=== PATIENT | male | born 1980 | race Caucasian/White ===

== ENCOUNTER 2024-11-11 10:40 | Day surgery (SDC) | payer OTHER, SELFPAY ==
[2024-11-08 14:44] VITALS: BMI 24.4
[2024-11-11] VITALS (13 sets, daily range): BP systolic 126–151; BP diastolic 90–109; PULSE 78–90; RESP 13–24; TEMP 36.3–36.7; O2SAT 99–100; BMI 21.9
[2024-11-11] MEDS: SODIUM CHLORIDE 0.9% 500 ML 500 ML 20 ML IV (12:04)
[2024-11-11] MEDS: MIDAZOLAM INJ 1 MG/ML VIAL 2 ML (ASD USE ONLY) 2 MG IV (12:09)
[2024-11-11] MEDS: fentaNYL CIT INJ 50 mCg/ML AMP 2ML (ASD USE ONLY) IV (12:09)
[2024-11-11] MEDS: DiphenhydrAMINE INJ 50 MG/ML VIAL 25 MG IV (12:10)
[2024-11-11] MEDS: ONDANSETRON INJ 2 MG/ML INJ 2 ML 4 MG IV (12:10)
== END 2024-11-11 12:55 | disposition home or self-care (01) ==
PROVIDERS: PCP Family Medicine; Referring Provider Specialist; Visit Provider Specialist
PROC: 0DBE8ZX Excision of Large Intestine, Via Natural or Artificial Opening Endoscopic, Diagnostic (ICD-10-PCS; CPT 45380; principal; 2024-11-11 11:45)
PROC: (CPT 43239; 2024-11-11 11:45)
DX: K64.9 Unspecified hemorrhoids (principal); K57.30 Diverticulosis of large intestine without perforation or abscess without bleeding
CPT/HCPCS: 45378; J1200; J2250; J2405; J3010; J7040

== ENCOUNTER → 2024-11-20 | Outpatient (CLI) | payer OTHER, SELFPAY ==
--- NOTE | 2024-11-20 11:00 | XR_ITS ---
Examination: Abdomen sonogram, complete Date and time of exam: November 20, 2024 1054 hours INDICATIONS: Abdominal pain beginning 3 months ago. Technique: Multiple real-time grayscale transabdominal sonographic images of the abdomen have been obtained. Findings: 8 mm gallstone Normal gallbladder wall Normal common bile duct 0.2 cm Pancreatic head 2.0 cm Aorta not enlarged Liver 15.9 cm smooth contour Normal hepatopedal portal venous flow Patent IVC Right kidney 9.9 cm cortex 1.4 cm Left kidney 9.0 cm cortex 1.7 cm Mild renal parenchymal scar formation Spleen 9.1 cm IMPRESSION: Cholelithiasis, negative for cholecystitis
== END | disposition home or self-care (01) ==
LOC: CDIM 10:40
PROVIDERS: PCP Family Medicine; Referring Provider Specialist; Visit Provider Specialist
DX: K80.20 Calculus of gallbladder without cholecystitis without obstruction (principal)
CPT/HCPCS: 76700

== ENCOUNTER 2025-01-07 11:01 | Emergency (ER) | payer OTHER, SELFPAY ==
[2025-01-07] MEDS: NALOXONE INJ 1 MG/ML SYRINGE 2 ML 2 MG IV (11:03)
[2025-01-07 11:04] VITALS: PULSE 109; RESP 4
--- NOTE | 2025-01-07 11:06 | PD.EDOVER ---
ED Overdose RME/HPI General Chief Complaint: Overdose Stated Complaint: OVERDOSE Time Seen by Provider: 01/07/25 11:07 Arrival date/time: 01/07/25 11:01 RME / HPI RME / HPI Narrative: 44 year old male presents to the ED BIBA for overdose today. Per medics report, patient was found unresponsive on his bathroom floor with Fentanyl and Heroin in his possession. On their arrival, patient was a GCS of 3 with a respiratory rate of 4 and pin point pupils. Patient was given 2mg of IN Narcan by PD and an additional 2mg IN Narcan by EMS with improvement. 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 Prehospital BS 158, blood pressure 148/82, HR 109. Related Data Home Medications ?Medication ?Instructions ?Recorded ?Confirmed No Known Home Medications 11/08/24 11/08/24 Allergies Allergy/AdvReac Type Severity Reaction Status Date / Time amoxicillin (From Augmentin) Allergy Verified 11/11/24 11:02 clavulanic acid (From Allergy Verified 11/11/24 11:02 Augmentin) Review of Systems Review of Systems Systems Reviewed: All systems reviewed, normal except as documented ED Exam Narrative Physical exam: GENERAL: NAD, AAOx3, lethargic HEENT: Dry mucosa. Eyes open, symmetrical, & clear CARDIO: Heart RRR, no obvious murmurs PULM: No noted coughing/dyspnea CTA B/L, no R/W/R GI: Abdomen soft, nondistended, no pain on palpation. BSx4 SKIN/MSK/EXT: No wounds/rashes/edema/amputations, no pain on palpation. Pedal pulses present B/L NEURO: AAOx3, no focal neuro deficits, able to move all 4 extremities Course Course Course Narrative: See MDM Quality Measures none Orders Category Date Time Status Rock Breaker NOW Care 01/07/25 11:08 Completed Continuous Pulse Oximetry NOW Care 01/07/25 11:07 Completed EKG (ED ONLY) *Do not use* NOW Care 01/07/25 11:07 Completed In and Out Catheter X1 Care 01/07/25 12:04 Completed Insert IV NOW Care 01/07/25 11:08 Completed EKG (ED Only) Stat Exams 01/07/25 11:07 Ordered Alcohol, Urine Stat Lab 01/07/25 12:20 Completed CBC Stat Lab 01/07/25 11:08 Completed Comprehensive Metabolic Panel Stat Lab 01/07/25 11:08 Completed Drug Screen,Urine Stat Lab 01/07/25 12:20 Completed Free T4 (Free Thyroxine) Stat Lab 01/07/25 11:08 Completed Thyroid Stimulating Hormone Stat Lab 01/07/25 11:08 Completed Urinalysis Stat Lab 01/07/25 12:20 Completed NALOXONE INJ (Syringe) [Narcan Inj (Syringe)] Med 01/07/25 11:22 Discontinued 2 mg IV X1 ONE Sodium Chloride 0.9% 1000 ml [Ns] 1,000 ml Med 01/07/25 11:07 Discontinued IV 999 mls/hr Oxygen Delivery NOW RT 01/07/25 11:08 Completed Vital Signs Vital signs: Vital Signs Pulse Rate 108 H 01/07/25 11:09 Respiratory Rate 20 01/07/25 11:09 Blood Pressure 159/98 H 01/07/25 11:09 Pulse Oximetry (%) 99 01/07/25 11:09 Oxygen Delivery Method Nasal Cannula 01/07/25 11:09 Oxygen Flow Rate 2 01/07/25 11:09 Overdose MDM Narrative MDM Narrative:: 44 year old male presents to the ED BIBA for overdose today. Per medics report, patient was found unresponsive on his bathroom floor with Fentanyl and Heroin in his possession. On their arrival patient found to be a GCS of 3 with a respiratory rate of 4 and pin point pupils. Patient was given 2mg of IN Narcan by PD and an additional 2mg IN Narcan by EMS with improvement. 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 Prehospital BS 158, blood pressure 148/82, HR 109. Current GCS of 13. 1103: Additional 2 mg of IV Narcan given, labs ordered, 1L NS 1150: CBC shows normocytic anemia, CMP shows acute kidney injury likely secondary to dehydration in the setting of drug overdose, IV fluids ordered and given, elevated liver enzymes likely in the setting of drug use 1410: The patient has decided to elope after being explained the risks & benefits of leaving before medical clearance/discharge. The patient had the opportunity to ask questions about their condition which were answered to their satisfaction; the patient is aware that they may return for further care at any time as needed. Patient data External records reviewed:: EMS form Clinical information provided by:: EMS Social determinants that could affect healthcare access:: substance use Patient has the following chronic illnesses:: None How is presenting disease/condition affected by chronic disease/condition?: caused by Evaluation data The following diagnostics were reviewed and interpreted by me:: lab results Lab and/or radiology exams considered but not ordered:: CT head Interpretation Summary: CBC shows normocytic anemia, elevated liver enzymes, acute kidney injury, Medications / Prescriptions Medications or Prescriptions considered but not ordered:: . Medication administrations:: Medication Administration History Discontinued Medications Sodium Chloride (Ns) 1,000 mls @ 999 mls/hr IV .Q1H1M KELSI Stop: 01/07/25 12:07 Last Infusion: 01/07/25 12:19 Dose: Infused Documented By: Admin: 01/07/25 11:23 Dose: 999 mls/hr Documented By: VL Naloxone HCl (Naloxone Inj 1 Mg/Ml Syringe 2 Ml) 2 mg IV X1 ONE Stop: 01/07/25 11:23 Last Admin: 01/07/25 11:03 Dose: 2 mg Documented By: KIRSTIN See above Consultations Consultation(s) initiated? (list below): No Diagnosis Overdose Differential Diagnosis: drug overdose Most likely diagnosis given after review of the tests above:: Fentanyl/heroin overdose Admission Indicated Admission indicated?: not indicated Admission Request Was there a request for admission?: No Disposition Plan Disposition Plan: other (specify) (eloped) Discharge Plan Plan Patient Disposition: Elopement Prescriptions/Referrals Prescriptions/Med Rec: No Action No Known Home Medications Referrals: No Primary/Family,Physician [Primary Care Provider] - In 1 week Problem List Clinical Impression: Drug overdose Patient/Caregiver Discharge Instructions Print Language: Korean
[2025-01-07 11:07] VITALS: BMI 25.9
[2025-01-07 11:09] VITALS: BP 159/98; PULSE 108; RESP 20; O2SAT 99
[2025-01-07 11:19] VITALS: PULSE 106; O2SAT 99
[2025-01-07] MEDS: SODIUM CHLORIDE 0.9% 1000 ML 1,000 ML 999 ML IV (11:23)
[2025-01-07 11:31] LABS: Basophils # (Auto) 0.1 Thou/mm3 (0.0-0.2); Basophils % (Auto) 1 % (0-2.5); Eosinophils # (Auto) 0.1 Thou/mm3 (0.0-0.5); Eosinophils % (Auto) 1 % (0-10); Hematocrit 40.4 % (41.0-53.0); Hemoglobin 13.4 g/dL (13.5-16.0); Immature Granulocytes Auto 0.03 Thou/mm3 (0.00-0.00); Lymphocytes # (Auto) 3.6 Thou/mm3 (1.0-4.8); Lymphocytes % (Auto) 41 % (10-50); Mean Corpuscular HGB Conc 33.2 g/dl (31.0-37.0); Mean Corpuscular Hemoglobin 29.5 pg (25.0-35.0); Mean Corpuscular Volume 89 fL (80-100); Monocytes # (Auto) 0.8 Thou/mm3 (0.0-0.8); Monocytes % (Auto) 10 % (0-12); Neutrophils # (Auto) 4.2 Thou/mm3 (1.8-7.7); Neutrophils % (Auto) 48 % (37-80); Nucleated Red Blood Cell # 0.00 Thou/mm3 (0.00-0.00); Nucleated Red Blood Cell % 0 /100 WBC (0); Platelet Count 179 Thou/mm3 (140-440); RDW Standard Deviation 43.8 fL (35.1-43.9); Red Blood Count 4.54 Miln/mm3 (4.50-5.90); White Blood Count 8.8 Thou/mm3 (3.8-10.6)
[2025-01-07 11:47] LABS: Alanine Aminotransferase 93 U/L (10-49); Albumin, Serum 4.2 gm/dL (3.5-5.0); Albumin/Globulin Ratio 1.6 (1.2-2.2); Alkaline Phosphatase 77 U/L (46-116); Anion Gap 15 (7-16); Aspartate Amino Transferase 129 U/L (0-34); BUN/Creatinine Ratio 16 Ratio (12-20); Bilirubin,Total 0.4 mg/dL (0.3-1.2); Blood Urea Nitrogen 27 mg/dL (9-23); Calcium 8.6 mg/dL (8.3-10.6); Calcium (Corrected) 8.6 mg/dL (8.5-10.1); Carbon Dioxide 24.0 mMol/L (20.0-31.0); Chloride 101 mMol/L (98-107); Creatinine (Component) 1.7 mg/dL (0.6-1.3); Estimated Creatinine Clearance 56.1 mL/min (>60); Globulin 2.6 gm/dL (2.3-3.5); Glucose 214 mg/dL (74-106); Osmolality,Calculated 290 (275-295); Potassium 3.9 mMol/L (3.4-5.1); Sodium 140 mMol/L (136-145); Thyroid Stimulating Hormone 5.93 uIU/mL (0.55-4.78); Total Protein 6.8 gm/dL (5.7-8.2); eGFR 50 See Note
[2025-01-07 12:11] LABS: Free T4 (Free Thyroxine) 1.17 ng/dL (0.89-1.76)
[2025-01-07 12:39] LABS: Collection Type, Urine Clean Catch
[2025-01-07 13:00] LABS: Alcohol, Urine Negative (Negative); Amphetamine/Methamp Scrn,U Positive (Negative); Barbiturate Screen,Urine Negative (Negative); Benzodiazepines Screen,Urine Negative (Negative); Benzoylecgonine Screen, Ur Negative (Negative); Fentanyl Screen,Urine Positive (Negative); Opiate Screen,Urine Negative (Negative); THC Screen,Urine Negative (Negative)
[2025-01-07 13:04] VITALS: BP 120/73; PULSE 97; RESP 20; TEMP 37.6; O2SAT 96
[2025-01-07 13:08] LABS: Bilirubin,Urine Negative (Negative); Blood,Urine Trace (Negative); Clarity,Urine Clear (Clear/Hazy); Color,Urine Lt-Yellow (Lt Yel-Yel); Glucose, Urine Negative (Negative); Ketones,Urine Negative (Negative); Leukocyte Esterase,Urine Negative (Negative); Nitrite,Urine Negative (Negative); PH,Urine 6.0 (5.0-7.0); Protein,Urine 1+ (Neg - Trace); RBC,Urine 2 /hpf (0-3); Specific Gravity,Urine 1.022 (1.001-1.035); Squamous Epithelial Cell,Urine < 1 /hpf (0-5); Urobilinogen,Urine Negative mg/dL (0.0-1.0); WBC,Urine 3 /hpf (0-5)
--- NOTE | 2025-01-07 14:10 | PC.NURSE ---
pt seen walking out of the room and down the hallway by nurse infection control at the back nurses station. Pt not found in side the E.D. or outside the E.D.
== END 2025-01-07 14:10 | disposition left against medical advice (07) ==
LOC: SERX 11:21
PROVIDERS: Emergency Provider Student in an Organized Health Care Education/Training Program
DX: T40.1X1A Poisoning by heroin, accidental (unintentional), initial encounter (principal); T40.411A Poisoning by fentanyl or fentanyl analogs, accidental (unintentional), initial encounter; Z53.29 Procedure and treatment not carried out because of patient's decision for other reasons; N17.9 Acute kidney failure, unspecified; E86.0 Dehydration; D64.9 Anemia, unspecified; R74.8 Abnormal levels of other serum enzymes
CPT/HCPCS: 36415; 80053; 80307; 80320; 81001; 84439; 84443; 85025; 93005; 96127; 96360; 99283; J2310; J7030; G0480